=== PATIENT | male | born 1950 | race Caucasian/White ===

== ENCOUNTER 2017-08-23 05:43 | Inpatient (IN) | payer BC ==
[2017-08-23] MEDS ORDERED: Acetaminophen IV 1GM/100ML * 1,000 MG/100 ML VIAL IVPB ONE (06:00)
[2017-08-23] MEDS ORDERED: Metoclopramide IV* 5 MG/ML 2 ML VIAL IV SLOW PU ONE (06:00)
[2017-08-23] MEDS ORDERED: Famotidine IV* 10 MG/ML 2 ML (20 mg) IV ONE (06:00)
[2017-08-23] MEDS ORDERED: Buffered Lidocaine 0.9% SYRIN* 5 ML/SYR SYRINGE INTRADERM ONE (06:00)
[2017-08-23] MEDS ORDERED: Metoclopramide IV* 5 MG/ML 2 ML VIAL ONE (06:01)
[2017-08-23] MEDS ORDERED: ceFAZolin 2 GM PREMIX (*) 2 GM/50 ML BAG IVPB ONE (06:01)
[2017-08-23] MEDS ORDERED: Famotidine IV* 10 MG/ML 2 ML (20 mg) ONE (06:01)
[2017-08-23] MEDS ORDERED: Acetaminophen IV 1GM/100ML * 100 ML ONE (06:03)
[2017-08-23] MEDS ORDERED: Bupivacaine 0.5%* 50 ML VIAL ONE (06:39)
[2017-08-23] MEDS ORDERED: Lidocaine 1% MPF wEPI 200,000* 30 ML SDV ONE (06:39)
[2017-08-23] MEDS ORDERED: Bupivacaine 0.5% SDV PF* 10-30ML VIAL ONE (07:15)
[2017-08-23] MEDS ORDERED: Morphine PF AMP (0.5MG/ML)* 5 MG/10 ML AMP ONE (07:15)
[2017-08-23] MEDS ORDERED: fentaNYL* 50 MCG/ML 2 ML VIAL (100 MCG VIAL) ONE ×2 (07:15→09:56)
[2017-08-23] MEDS ORDERED: Midazolam* 1 MG/ML 2 ML VIAL (2 MG) ONE ×3 (07:15→09:49)
[2017-08-23] MEDS ORDERED: Propofol* 500 MG/50 ML BTL ONE ×2 (07:16→09:55)
[2017-08-23] MEDS ORDERED: Lidocaine 2% PF * 5 ML VIAL ONE (07:16)
[2017-08-23] MEDS ORDERED: Phenylephrine IV* 40 MCG/ML 10 ML SYRINGE ONE (08:15)
[2017-08-23] MEDS ORDERED: EPHEDrine (Pressors)* 50 MG/ML VIAL ONE (08:15)
[2017-08-23] MEDS ORDERED: diPHENhydraMINE IV* 50 MG/ML 1 ml VIAL (BENADRYL) IV PRN ×2 (08:39→08:41)
[2017-08-23] MEDS ORDERED: Ondansetron INJ* 2 MG/ML VIAL IV PRN ×2 (08:39→08:41)
[2017-08-23] MEDS ORDERED: Naloxone* 0.4 MG/ML 1 ML VIAL IV PRN ×2 (08:39→08:41)
[2017-08-23] MEDS ORDERED: HYDROmorphone INJ* 1 MG/ML CARPUJECT SYRINGE IV PRN (08:39)
[2017-08-23] MEDS ORDERED: oxyCODONE TAB* 5 MG TAB PO PRN ×2 (08:39)
[2017-08-23] MEDS ORDERED: oxyCODONE/Acetamin 5/325 MG* TAB PO PRN (08:39)
[2017-08-23] MEDS ORDERED: PROCHLORPERAZINE INJ 5 MG/ML 2 ML VIAL IV PRN ×2 (08:39→08:41)
[2017-08-23] MEDS ORDERED: fentaNYL* 50 MCG/ML 2 ML VIAL (100 MCG VIAL) IV PRN (08:39)
[2017-08-23] MEDS ORDERED: Scopolamine 1.5 mg* PATCH TRANSDERM PRN (08:39)
[2017-08-23] MEDS ORDERED: HYDROcodone/ACETAMIN 5-325 MG* 1 TAB PO PRN (08:41)
[2017-08-23] MEDS ORDERED: Acetaminophen TAB* 325 MG PO PRN (08:41)
[2017-08-23] MEDS ORDERED: EPHEDrine (Pressors)* 50 MG/ML VIAL IV PUSH PRN (08:46)
[2017-08-23] MEDS ORDERED: Nalbuphine* 20 MG/ML 1 ML VIAL IV PRN (08:46)
[2017-08-23] MEDS ORDERED: OBEPIDURAL* 250 ML EPIDURAL SCH (09:00)
[2017-08-23] MEDS ORDERED: Lidocaine 2% EPI 1:200000 MPF*10-20 ML VIAL ONE (10:13)
[2017-08-23] MEDS ORDERED: Ondansetron INJ* 2 MG/ML VIAL ONE (10:43)
[2017-08-23] MEDS ORDERED: Cyclobenzaprine TAB* 10 MG PO PRN (12:03)
[2017-08-23] MEDS ORDERED: Magnesium Hydroxide LIQ* 30 ML UDC PO PRN (12:03)
--- NOTE | 2017-08-23 13:02 | RAD ---
INDICATION: Left knee arthroplasty COMPARISON: None TECHNIQUE: Portable AP and crosstable lateral were obtained. FINDINGS: There is left knee arthroplasty. Both femoral and tibial components appear well seated. There are soft tissue changes compatible with recent surgery to include anterior skin anthony. There is a cooling jacket in place. IMPRESSION: POSTOPERATIVE LEFT TOTAL KNEE ARTHROPLASTY
--- NOTE | 2017-08-23 13:03 | RAD ---
INDICATION: Right knee arthroplasty COMPARISON: None TECHNIQUE: Portable AP and lateral views were obtained. FINDINGS: There is right knee arthroplasty. Both femoral and tibial components appear well seated. There are anterior skin anthony. There is a cooling jacket in place. IMPRESSION: POSTOPERATIVE RIGHT TOTAL KNEE ARTHROPLASTY
[2017-08-23] MEDS: D5W 1/2 NS 1000 ML BAG* 1,000 ML IV SCH (15:19)
[2017-08-23] MEDS ORDERED: Warfarin TAB(*) 10 MG PO ONE (17:00)
--- NOTE | 2017-08-23 19:12 | OP ---
DATE OF OPERATION: 08/23/17 - ROOM #348 DATE OF : 50 ATTENDING SURGEON: Kuldeep James MD GROUP WORK PROGRAM AIDE: JULIA Reeves ANESTHESIA: Spinal epidural with sedation. PRE-OP DIAGNOSIS: Osteoarthritis, bilateral knees. POST-OP DIAGNOSIS: Osteoarthritis, bilateral knees. OPERATIVE PROCEDURE: 1. Right total knee arthroplasty. 2. Left total knee arthroplasty. ESTIMATED BLOOD LOSS: 100 cc. COMPLICATIONS: None. HARDWARE: Ameya Persona #11 femur, H tibia, 10 mm polyethylene, 41 mm all polyethylene patellar button and these were used on both sides. SUMMARY: Mr. Wellington is a 66-year-old male who recently retired and always had been quite active. He notes that he has been able to be less and less because of significant pain in both of his knees. I had seen him in the fall and we had tried some simple modalities to try and get this better, but he is still quite limited. He represented to the office last month requesting bilateral knee replacements. I discussed with him that my preference is usually that people proceed one at a time so that they can make sure that they do have a good leg to stand on, but he reports he would like to get it all done and out of the way. Risks of surgery such as infection, scar formation, stiffness, DVT , pulmonary embolism, hardware failure, and continued pain were some of the risks discussed. He had been declared medically optimized and wished to proceed. Nayeli Wright was present for the entire case and the case could not have been done without her assistance with retraction, placement, and cementing of the components. DESCRIPTION OF PROCEDURE: The patient was brought to the OR and spinal epidural anesthesia was established. Santos catheter was placed. Tourniquet was placed over both thighs and used during the case. Tourniquet time on the right would be approximately 82 minutes, tourniquet time on the left would be approximately 65 minutes. Both knees were prepped and then draped. Esmarch was used to exsanguinate the right leg and tourniquet was raised. Midline incision was made centered about the patellar and was carried down to the skin and subcutaneous tissues. Extensor mechanism was nicely exposed and a sharp parapatellar arthrotomy was made. Quite a bit of clear yellowish joint fluid was encountered. Fat pad was sharply excised and the soft tissues were sharply elevated from the medial side of the tibia. Patellar measured approximately 30 mm in thickness and a nice 12 mm cut was taken. Patellar was then easily subluxated laterally and the knee was flexed up. He had quite the osteophytes and these were taken down using the rongeur. Step drill was used to open the femoral canal and intramedullary guide was placed. This was adjusted until it was parallel with the epicondyles and distal femoral cutting guide was then placed. Intramedullary guide was removed and distal femoral cut was taken. Femur was sized and they seemed to fit nicely for an 11. Holes were drilled and cutting guide was placed. Drill was run through the superior hole and this came out nicely right on the top side of the femur. Anterior and posterior femoral cuts followed by the chamfer cuts were all taken. Attention was turned to the tibia. Step drill was used to open the tibial canal, intramedullary guide was placed. Outrigger was assembled and adjusted to appear it will take 2 mm from the very worn medial side. Proximal tibial cut was taken, it appeared that it was a nice cut. Spacer block with a drop norma was placed and the tibial cut was perfectly aligned to the shaft of the tibia. On the femur; however, it could be seen how it was tight and I had not taken enough from the medial side of the femur. He had been sent to resect 2 mm to help with his flexion contracture as well as 3 degrees which is what I had measured, but this clearly was inadequate. Saw was then free handed to cut the medial femur so that I would get a nice equal measured resection. Spacer block was placed and now the cut really seemed perfect. Cutting block was replaced and chamfer cuts were recut. Now with the 10 spacer block, he sat nicely and his alignment appeared perfect. Coming back to the tibia and H sat very nicely and this was pinned into place. Proximal tibia was drilled and then punched. Femur was placed and notch cut was finished and stead holes were drilled. He was trialed with a 10 and he had wonderful motion and stability and came out now into full extension. Patellar tracking was good even without the patellar. Patellar was sized in a 41 and sat well. Holes were drilled and trial was snapped into place. Again patellar tracking was perfect. Trial instrumentation was removed , knee was copiously pulse lavaged. Cement was being prepared. Tibia followed by the femur and patella were all cemented into place. Excess cement was removed and cement was allowed to harden. Once the cement had hardened, knee was again searched for excess cement and a few small bits were found. He was again trialed with a 10 and had the same wonderful motion and stability. 10 Polyethylene was snapped into place. The knee was again copiously pulse lavaged. Parapatellar arthrotomy was prepared using interrupted #1 Vicryl sutures and tourniquet was let down. No significant bleeding was encountered. Subcutaneous tissues were approximated with 2-0 Vicryl and knee was then wrapped in Coban. I asked anesthesia if he was stable throughout and Mr. Wellington was doing great. Decision was made to continue with the second knee replacement now on the left side. Esmarch was used to exsanguinate the left leg and tourniquet was raised. Midline incision was made carried down through the skin and subcutaneous tissues. Soft tissues were sharply elevated from the medial side of the tibia and the fat pad were sharply excised. Patella measured again, 30 mm thickness and approximately a 14 mm cut was taken on the left side. Patella was then easily subluxated laterally and the knee was flexed up. Step drill was used to open the femoral canal. Intramedullary guide was placed. This was adjusted until it was parallel with the epicondyles and the distal femoral cutting guide was then pinned into place. At this time, it had been set at 2 degrees with the resection of 2 mm as he had a flexion contracture on this side as well. Distal femoral cut was taken and this time a good cut again appeared to have been taken. Femur was sized and again he sat nicely for an 11. Holes were drilled, but this was a little inferior as the drill came out in the level of the cortex and holes were moved up a mm and a half. This then worked perfectly. An anterior posterior femoral cuts followed by the chamfer cuts were taken. Attention was turned to the tibia. Step drill was used to open the tibial canal and the intramedullary guide was placed. Outrigger was assembled and adjusted to appear it will take 2 mm from the worn medial side and proximal tibial cut was taken. Nice cut was obtained with the spacer block sitting flat on the tibia. Alignment norma dropped down perfectly. With the 10 block he was almost perfect and I just took approximately a curf line saw cut from the medial side of the saw and flattened this out. Again anterior and again the chamfer cuts were recut as well. Coming along the tibia an H sat nicely and this was pinned into place. Proximal tibia was drilled and then punched. A #11 femur was placed and a notch cut was finished and stud holes were drilled. With a 10 polyethylene he came out nicely until full extension, flexed easily, and moved quite well. Patellar tracking was good even without the patellar trial. Patellar was drilled for a 41 as well and trial was snapped into place. It is a wonderful motion and stability. Trial instrument was removed. The knee was copious pulse lavaged. Cement was being prepared. Tibia followed by femur and patellar were all cemented into place. Cement was allowed to harden and the knee was then searched for excess cement. Knee was again pulse lavaged. 10-polyethylene was then snapped into place. The knee was again copiously pulse lavaged. Parapatellar arthrotomy was prepared using interrupted #1 sutures and the tourniquet was let down. No significant bleeding was encountered. Subcutaneous tissue was reapproximated with 2-0 Vicryl. Skin was closed using natalie. Natalie were applied to the right knee while the cement was hardening. Sterile dressing and bilateral Cryo/ Cuffs were also applied. The patient was then awake and stable on transfer to the recovery room. [id number]/[facility], [place] #: [id number] HORTENCIA
[2017-08-23] MEDS ORDERED: Heparin VIAL(*) 5000 UNITS/ML VIAL (FIVE THOUSAND) SUBCUT SCH (21:00)
[2017-08-23] MEDS: Docusate CAP* 100 MG PO SCH (21:07)
[2017-08-23] MEDS: Atorvastatin* 20 MG TAB PO SCH (21:07)
[2017-08-23] MEDS: Magnesium Hydroxide LIQ* 30 ML UDC PO SCH (21:07)
[2017-08-24] MEDS ORDERED: oxyCODONE/Acetamin 5/325 MG* TAB PO PRN ×2 (00:30)
[2017-08-24] MEDS ORDERED: oxyCODONE TAB* 5 MG TAB PO PRN (00:30)
[2017-08-24] MEDS ORDERED: Morphine VIAL* 4 MG/ML VIAL (1 ml vial) IV PRN (00:30)
[2017-08-24] MEDS ORDERED: Morphine INJ* 2 MG/ML 1 ML CARPUJECT IV PRN (00:30)
[2017-08-24] MEDS: D5W 1/2 NS 1000 ML BAG* 1,000 ML IV SCH ×2 (00:51→11:23)
[2017-08-24] MEDS ORDERED: diPHENhydraMINE PO* 25 MG PO PRN (04:41)
[2017-08-24 07:30] LABS: Hematocrit 33 % (42-52); Hemoglobin 11.1 g/dl (14.0-18.0); Mean Platelet Volume 9.5 um3 (7.4-10.4); Platelet Count 168 10^3/ul (150-450)
[2017-08-24 07:33] LABS: INR 1.4 (0.77-1.02)
[2017-08-24 07:40] LABS: EGFR Non-African American 92.7 (>60)
[2017-08-24] MEDS ORDERED: Scopolamine 1.5 mg* PATCH ONE (07:49)
[2017-08-24] MEDS ORDERED: Ondansetron INJ* 2 MG/ML VIAL IV PRN (07:59)
[2017-08-24] MEDS ORDERED: Scopolamine 1.5 mg* PATCH TRANSDERM SCH (08:00)
--- NOTE | 2017-08-24 08:09 | PN ---
Progress Note - Progress Note Date of Service: 08/24/17 SOAP: Subjective: [Pt was seen sitting up in bed. States that he has been feeling considerable nausea and has vomited. He states that he has been having trouble keeping things down. Feels very tired as the nausea and vomiting has kept him up. States that the knees feel stiff but not bad. Pain is well controlled with percocet. Denies any numbnes or tingling. ] Objective: [General : Pt is alert, awake and oriented. He appears a bit sweaty and mildly pale. Durring the exam he started to feel nauseous and wrenched over a zurita bowl. He did spit up some small amount of saliva. No antonina vomiting at this time. MSK: Bilateral lower extremities: Knees bilaterally have dressings intact, clean and dry. Ability to df/pf is present bilaterally. There is full sensation intact to light touch and pulses are 2+ DP and PT bilaterally. The pt has soft and nontender calfs to palpation bilaterally. ] Vital Signs Temp 97.5 F 08/24/17 07:16 Pulse 77 08/24/17 07:16 Resp 16 08/24/17 08:00 BP 119/63 08/24/17 07:16 Pulse Ox 100 08/24/17 08:00 Intake & Output 08/23/17 08/24/17 08/24/17 18:59 06:59 18:59 Intake Total 2425 1104 Output Total 700 820 Balance 1725 284 Intake: IV Fluids 2350 944 D5W 1/2 NS 944 LR 2300 NS 50ML, Cefazolin 2G 50 Oral 75 160 Output: Santos 700 820 Other: # Bowel Movements 0 Assessment: [S/P Bilateral total knee arthroplasty] Plan: [1. Continue with current anticoagulation 2. Zofran ordered to help with nausea, Transderm patch also ordered for jail nausea relief. 3. Continue with PT 4. Continue with current pain medication 5. Pt is a diet controlled diabetic, Nurses expressed concern over elevated glucose to 200. POC glucose has been ordered for monitoring, nurses will call should glucose continue to rise. ]
[2017-08-24] MEDS: Atenolol TAB* 50 MG PO SCH (09:15)
[2017-08-24] MEDS: Docusate CAP* 100 MG PO SCH ×2 (09:15→21:28)
[2017-08-24] MEDS: Magnesium Hydroxide LIQ* 30 ML UDC PO SCH ×2 (09:16→21:28)
[2017-08-24] MEDS: Heparin VIAL(*) 5000 UNITS/ML VIAL (FIVE THOUSAND) SUBCUT SCH ×2 (12:52→21:31)
[2017-08-24] MEDS: Acetaminophen TAB* 325 MG PO PRN ×3 (13:02→21:51)
[2017-08-24] MEDS ORDERED: Warfarin TAB(*) 4 MG PO ONE (17:00)
[2017-08-24] MEDS: Ketorolac TAB * 10 MG TAB PO PRN (20:07)
[2017-08-24] MEDS: Atorvastatin* 20 MG TAB PO SCH (21:28)
[2017-08-25] MEDS: Ketorolac TAB * 10 MG TAB PO PRN (03:21)
[2017-08-25] MEDS: Acetaminophen TAB* 325 MG PO PRN ×2 (06:43→12:41)
[2017-08-25 08:06] LABS: Hematocrit 28 % (42-52); Hemoglobin 9.6 g/dl (14.0-18.0); Mean Platelet Volume 9.2 um3 (7.4-10.4); Platelet Count 148 10^3/ul (150-450)
[2017-08-25 08:11] LABS: INR 4.01 (0.77-1.02)
[2017-08-25] MEDS: Heparin VIAL(*) 5000 UNITS/ML VIAL (FIVE THOUSAND) SUBCUT SCH (08:39)
[2017-08-25] MEDS: Magnesium Hydroxide LIQ* 30 ML UDC PO SCH (08:46)
[2017-08-25] MEDS: Docusate CAP* 100 MG PO SCH (08:46)
[2017-08-25] MEDS: Atenolol TAB* 50 MG PO SCH (08:46)
--- NOTE | 2017-08-25 12:07 | PN ---
Progress Note - Progress Note Date of Service: 08/25/17 SOAP: Subjective: []Patient seen OOB in chair. He is very comfortable, pain is controlled and patient is no longer nauseous. He denies CP, SOB, dizziness or leg numbness. He is progressing towards goals with physical therapy and desires discharge home. Objective: [] Vital Signs Temp 98.0 F 08/25/17 11:38 Pulse 91 08/25/17 11:38 Resp 17 08/25/17 11:38 BP 109/59 08/25/17 11:38 Pulse Ox 100 08/25/17 11:38 Intake & Output 08/24/17 08/25/17 08/25/17 18:59 06:59 18:59 Intake Total 1170 1739 425 Output Total 425 350 300 Balance 745 1389 125 Intake: IV Fluids 1010 979 D5W 1/2 NS 1010 979 Oral 160 760 425 Output: Urine 375 350 300 Emesis 50 Other: # Bowel Movements 0 Laboratory Last Values Hgb 9.6 g/dl (14.0-18.0) L 08/25/17 07:45 Hct 28 % (42-52) L 08/25/17 07:45 Plt Count 148 10^3/ul (150-450) L 08/25/17 07:45 MPV 9.2 um3 (7.4-10.4) 08/25/17 07:45 INR (Anticoag Therapy) 4.01 (0.77-1.02) H 08/25/17 07:45 Sodium 137 mmol/L (139-145) L 08/24/17 07:04 Potassium 4.3 mmol/L (3.5-5.0) 08/24/17 07:04 Chloride 103 mmol/L (101-111) 08/24/17 07:04 Carbon Dioxide 28 mmol/L (22-32) 08/24/17 07:04 Anion Gap 6 mmol/L (2-11) 08/24/17 07:04 BUN 22 mg/dL (6-24) 08/24/17 07:04 Creatinine 0.83 mg/dL (0.67-1.17) 08/24/17 07:04 Est GFR ( Amer) 119.2 (>60) 08/24/17 07:04 Est GFR (Non-Af Amer) 92.7 (>60) 08/24/17 07:04 BUN/Creatinine Ratio 26.5 (8-20) H 08/24/17 07:04 Glucose 236 mg/dL (70-100) H 08/24/17 07:04 POC Glucose (mg/dL) 175 mg/dL (70-100) H 08/25/17 07:45 Calcium 8.6 mg/dL (8.6-10.3) 08/24/17 07:04 General: Well appearing, NAD Lower extremities: Bilateral dressings changed, Incisions with well approximated wound edges, CDI and no erythema, DF/PF intact, DP pulses 2+, Sensation intact to light touch distally. Calves supple and nontender without erythema, edema or palpable cords Assessment: []POD 2 s/p bilateral total knee arthroplasty Plan: []WBAT PT/OT -- Must meet goals with PT to D/C home today Stop Heparin. INR supratherapeutic: hold coumadin today
[2017-08-25 15:39] VITALS: BP 111/65
--- NOTE | 2017-08-26 05:14 | DS ---
DATE OF ADMISSION AND DATE OF SURGERY: 08/23/17 DATE OF DISCHARGE: 08/25/17 PROVIDER: Dr. Kuldeep James * (DICTATED BY JULIA GUERRA) PIPELAYING FITTER: JULIA Reeves PREOPERATIVE DIAGNOSIS: Osteoarthritis of bilateral knees. POSTOPERATIVE DIAGNOSIS: Osteoarthritis of bilateral knees. OPERATIVE PROCEDURE: Right total knee arthroplasty and left total knee arthroplasty. SUMMARY: Mr. Wellington is a 66-year-old male who recently retired and has always been quite active. He notes that he has been less and less able to engage in his desired activities due to significant pain in both knees. He failed conservative management and has requested to undergo bilateral knee replacement. HOSPITAL COURSE: On 08/23/17, Mr. Wellington underwent a bilateral total knee arthroplasty. He tolerated the procedure well. He recovered briefly in the PACU and then was transferred in stable condition to the short stay surgical unit. Patient was nauseous on his operative day and postop day #1. He was alert and oriented. Bilateral knees with dressings clean, dry and intact. He was able to dorsiflex and plantar flex bilaterally. He had full sensation to light touch and pulses were 2+ dorsalis pedis and posterior tibial bilaterally. Calf was supple and nontender. On postop day #2, patient was feeling much better, denying any nausea. His dressings were changed bilaterally, incisions were clean, dry and intact with well approximated wound edges. No erythema. Dorsiflexion and plantar flexion intact bilaterally. Dorsalis pedis pulse 2+ bilaterally. Sensation intact to light touch distally. Calf supple and nontender without erythema, edema, or palpable cords. Hemoglobin 9.6, hematocrit 28, INR was 4.01. Vital signs: Temperature 98.0, pulse 91, respiratory rate 17, blood pressure 109/59 and pulse ox 100. On his operative day, the patient received 10 mg of warfarin. On postop day #1, he received 4 mg of warfarin. On postop day #1, his INR was 1.40 and on postop day #2, his INR was 4.01. The patient was deemed to be medically and orthopedically stable for discharge home. DISCHARGE MEDICATIONS: At home please resume: 1. Atorvastatin 20 mg p.o. at bedtime. 2. Atenolol 50 mg p.o. q.a.m. 3. Tylenol extra strength one tab p.o. bedtime as needed. New medications 1. Acetaminophen 650 mg p.o. q. 4 hours p.r.n., max daily dose of 4000 mg from all sources. 2. Docusate 100 mg p.o. b.i.d. p.r.n. 3. Percocet 5/325 mg one to two tabs every four to six hours as needed p.r.n. pain, max daily dose of 10. 4. Scopolamine patch to be removed after 3 days of wear. 5. Warfarin 2 mg tablets, take 0 to 3 tablets daily depending on INR values. DISCHARGE PLAN: The patient will be weightbearing as tolerated, okay to shower after 08/26/17. Do not submerge the wound. Call orthopedic office for increased drainage, redness, increased pain or fever. Go to emergency room with shortness of breath or chest pain. Continue physical therapy and occupational therapy, exercises as shown. Visiting home nurses will remove your anthony in 10 to 12 days and do wound check. Visiting home nurse will do blood work for INR draws Mondays and . Coumadin dosing, you have been given 2 mg tabs. You will be given the dose of Coumadin to take each day on 04/03. Please do not take any Coumadin as your INR value is above desired range. We will recheck on 08/26 for further dosing instructions. Pain control with Percocet 5/325 one to two tablets every four to six hours as needed for pain, do not exceed 10 tabs per day. Follow up with Dr. James within four weeks or sooner if any issues, call for an appointment. [facility] . JULIA GUERRA [id number]/[facility] #: [id number] HORTENCIA
[2017-08-26] MEDS ORDERED: Scopolamine PATCH Remove* 1 NOTE MISC PATCH OFF ONE (08:41)
== END 2017-08-25 16:00 | disposition home or self-care (01) | DRG 302 ==
LOC: AA 05:43 → SSU 14:42
PROVIDERS: ADMIT Orthopaedic Surgery; ATTEND Orthopaedic Surgery
PROC: 0SRC0J9 Replacement of Right Knee Joint with Synthetic Substitute, Cemented, Open Approach (ICD-10-PCS; 2017-08-23)
PROC: 0SRD0J9 Replacement of Left Knee Joint with Synthetic Substitute, Cemented, Open Approach (ICD-10-PCS; principal; 2017-08-23 07:30)
DX: M17.0 Bilateral primary osteoarthritis of knee (principal); I47.1 Supraventricular tachycardia; M21.161 Varus deformity, not elsewhere classified, right knee; E78.2 Mixed hyperlipidemia; I71.2 Thoracic aortic aneurysm, without rupture; E11.42 Type 2 diabetes mellitus with diabetic polyneuropathy; Z85.828 Personal history of other malignant neoplasm of skin; Z82.49 Family history of ischemic heart disease and other diseases of the circulatory system; Z72.89 Other problems related to lifestyle; Z81.8 Family history of other mental and behavioral disorders; Z79.01 Long term (current) use of anticoagulants; Z91.81 History of falling; R11.2 Nausea with vomiting, unspecified
CPT/HCPCS: 36415; 80048; 85014; 85018; 85049; 85610; 88305; 88311; 94760; A9270-GY; C1776; J0690; J0780; J1644; J2001; J2250; J2405; J2704; J2765; J3010